=== PATIENT | male | born 1965 | race Caucasian/White ===

== ENCOUNTER 2019-03-15 11:07 | Emergency (ER) | payer SELFPAY ==
[~2019-03-15] VITALS: Ht 165.1 cm; Wt 63.5 kg
--- NOTE | 2019-03-15 11:47 | PHYS DOC ---
Past Medical History Past Medical History: COPD, Hypertension Past Surgical History: No Surgical History Alcohol Use: Heavy Drug Use: None Adult General Chief Complaint Chief Complaint: ALLERGIC REACTION HPI HPI Patient is a pleasant 53-year-old male, with a past history of COPD, as well as hypertension, who presents to the emergency department for evaluation. He states he awakened this morning, noticed the left side of his face was swelling, primarily his left upper and lower lip. He also has some mild swelling on the right side of his face. He has a prior history of angioedema, which was attributed to hydrochlorothiazide in the past, and he has been taken off that medication. However, he is on lisinopril, as well as Norvasc for his hypertension. His voice is somewhat raspy, but he denies any significant shortness of breath. He has not had any fevers or chills otherwise. There are no alleviating, or exacerbating factors to his symptoms. His symptoms have been relatively stable since he awakened this morning. Review of Systems Review of Systems Constitutional: Denies fever or chills [] Eyes: Denies change in visual acuity, redness, or eye pain [] HENT: Denies nasal congestion or sore throat [] Respiratory: Denies cough or shortness of breath [] Cardiovascular: The patient denies any shortness of breath, chest pain, palpita tions, or orthopnea [] GI: Denies abdominal pain, nausea, vomiting, bloody stools or diarrhea [] : Denies dysuria or hematuria [] Musculoskeletal: Denies back pain or joint pain [] Integument: Denies rash or skin lesions [] Neurologic: Denies headache, focal weakness or sensory changes [] Endocrine: Denies polyuria or polydipsia [] All other systems were reviewed and found to be within normal limits, except as documented in this note. Current Medications Current Medications Current Medications Medications (Trade) Dose Ordered Sig/Jimmie Start Time Stop Time Status Last Admin Dose Admin Diphenhydramine HCl (Benadryl) 25 mg 1X ONCE 03/15/19 12:00 03/15/19 12:01 DC 03/15/19 11:47 25 MG Famotidine (Pepcid Vial) 20 mg 1X ONCE 03/15/19 12:00 03/15/19 12:01 DC 03/15/19 11:46 20 MG Methylprednisolone Sodium Succinate (SOLU-Medrol 125MG VIAL) 125 mg 1X ONCE 03/15/19 12:00 03/15/19 12:01 DC 03/15/19 11:46 125 MG Allergies Allergies Allergies Coded Allergies Type Severity Reaction Last Updated Verified hydrochlorothiazide Allergy Intermediate 03/15/19 Yes lisinopril Allergy Intermediate 03/15/19 Yes morphine Allergy Intermediate 03/15/19 Yes Physical Exam Physical Exam PHYSICAL EXAM: CONSTITUTIONAL: Well developed, well nourished HEAD: normocephalic, atraumatic EENT: PERRL, EOMI. Conjunctivae normal color, sclerae non-icteric; moist mucous membranes. There is moderate edema to the left upper and lower face, including lips. There is mild edema to the right face. Airway is patent, with no edema. There is mild swelling to the tongue, L>R. THere is no stridor. NECK: Supple, non-tender; no meningismus. LUNGS: Lungs CTA, breathing even and unlabored. Normal air movement. HEART: Regular rate and rhythm, no murmur CHEST: No deformity; non-tender ABDOMEN: The abdomen is soft, and non-tender, no masses or bruits. EXTREM: Normal ROM; no deformity, no calf tenderness. Normal pulses palpable in all extremities. There is no pedal edema. SKIN: No rash; no diaphoresis NEURO: Alert; normal speech and cognition; CN's grossly intact; strength grossly intact without focal deficit. BACK: No CVA TTP. Current Patient Data Vital Signs Vital Signs Date Time Temp Pulse Resp B/P (MAP) Pulse Ox O2 Delivery O2 Flow Rate FiO2 03/15/19 11:16 98.5 84 20 118/77 (91) 99 Room Air 98.5 EKG EKG [] Radiology/Procedures Radiology/Procedures [] Course & Med Decision Making Course & Med Decision Making 1:40 PM: Pt remains stable. Swelling has decreased in his face. His airway remains stable. Discussed need for PCP f/u to adjust BP meds, discussed stopping lisinopril, and return precautions Xavier Disclaimer Xavier Disclaimer This electronic medical record was generated, in whole or in part, using a voice recognition dictation system. Departure Departure Impression: Primary Impression: Angioedema Disposition: HOME, SELF-CARE Condition: STABLE Patient Instructions: Angioedema Additional Instructions: Stop taking your lisinopril. Follow-up with your primary care provider for further adjustment of your blood pressure medication in the coming days. Please call to schedule an appointment. Take Benadryl 25-50 mg every 6 hours for the next 3 days. Use caution as this m ay cause sedation. Additionally, take Pepcid AC 10 mg twice daily for the next 3 days. This medicine is available [id number]. Use the prescribed steroids as instructed. Return to medical care for any new, or worsening symptoms, the development of shortness of breath, new rash, dizziness lightheadedness, fevers, or any other new, or concerning symptoms. Scripts Prednisone (PREDNISONE) 20 Mg Tablet 40 MG PO DAILY for 5 Days, #10 TAB Prov: JUAN ALBERTO CAPELLAN MD 03/15/19 JUAN ALBERTO CAPELLAN MD March 15, 2019 11:47
[2019-03-15] MEDS ORDERED: diphenhydrAMINE 50 MG/ML VIAL IVP ONE (12:00)
[2019-03-15] MEDS ORDERED: methylPREDNISolone SOD SUCC PF 125 MG/2 ML VIAL. IV ONE (12:00)
[2019-03-15] MEDS ORDERED: FAMOTIDINE 20 MG/2 ML VIAL IVP ONE (12:00)
[2019-03-15 13:42] VITALS: BP 128/72
[2019-03-15] MEDS ORDERED: PRED20TA PO (13:51)
== END 2019-03-15 14:04 | disposition home or self-care (01) ==
LOC: ER 11:07
DX: T78.3XXA Angioneurotic edema, initial encounter (principal); J44.9 Chronic obstructive pulmonary disease, unspecified; I10 Essential (primary) hypertension; F10.20 Alcohol dependence, uncomplicated; Y90.9 Presence of alcohol in blood, level not specified; Z88.8 Allergy status to other drugs, medicaments and biological substances; Z88.5 Allergy status to narcotic agent
CPT/HCPCS: 96374; 96375; 99284; J1200; J2930; J3490

== ENCOUNTER 2019-08-15 02:10 | Emergency (ER) | payer SELFPAY ==
[~2019-08-15] VITALS: Ht 175.3 cm; Wt 65.8 kg
[~2019-08-15 02:10] MED LIST: PRED20TA PO
[2019-08-15 02:38] LABS: BASO # 0.1 x10^3/uL (0.0-0.2); BASO % 1 % (0-3); EOS # 0.2 x10^3/uL (0.0-0.7); EOS % 4 % (0-3); HEMATOCRIT 43.4 % (39.0-53.0); HEMOGLOBIN 14.9 g/dL (13.0-17.5); LYMPH # 1.9 x10^3/uL (1.0-4.8); LYMPH % 34 % (24-48); MEAN CORPUSCULAR HEMOGLOBIN 32 pg (25-35); MEAN CORPUSCULAR HGB CONC 34 g/dL (31-37); MEAN CORPUSCULAR VOLUME 93 fL (79-100); MONO # 0.7 x10^3/uL (0.0-1.1); MONO % 11 % (0-9); NEUT # 2.9 x10^3/uL (1.8-7.7); NEUT % 50 % (31-73); PLATELET COUNT 243 x10^3/uL (140-400); RED CELL DISTRIBUTION WIDTH 14.2 % (11.5-14.5); WHITE BLOOD COUNT 5.8 x10^3/uL (4.0-11.0)
[2019-08-15] MEDS ORDERED: IV NORMAL SALINE 1000ML BAG 1,000 ML IV ONE (02:45)
[2019-08-15 02:48] LABS: CALCIUM 8.6 mg/dL (8.5-10.1); CREATININE 0.7 mg/dL (0.7-1.3); GFR 117.5; POTASSIUM 3.6 mmol/L (3.5-5.1)
[2019-08-15 02:54] LABS: ALBUMIN 3.5 g/dL (3.4-5.0); ALBUMIN/GLOBULIN RATIO 0.8 (1.0-1.7); TOTAL BILIRUBIN 0.1 mg/dL (0.2-1.0); TOTAL PROTEIN 8.1 g/dL (6.4-8.2)
--- NOTE | 2019-08-15 05:28 | PHYS DOC ---
Past Medical History Past Medical History: COPD, Hypertension Additional Past Medical Histor: ANGIOEDEMA - r/t BP meds; hx of mult episodes Past Surgical History: Other Additional Past Surgical Histo: UNKNOWN Alcohol Use: Heavy Drug Use: Marijuana Adult General Chief Complaint Chief Complaint: ALCOHOL INTOXICATION HPI HPI Patient is a 54 year old who presents to the ED with a chief complaint of alcohol intoxication and possible overdose of his blood pressure medication. Patient is not sure how much medication he took. Patient states that he drank quite heavily tonight. Patient denies injury. Review of Systems Review of Systems Constitutional: Denies fever or chills [] HENT: Denies nasal congestion or sore throat [] Respiratory: Denies cough or shortness of breath [] Cardiovascular: Patient denies chest pain[] GI: Denies abdominal pain, nausea, vomiting, bloody stools or diarrhea [] : Denies dysuria or hematuria [] Neurologic: Denies headache [] All other systems were reviewed and found to be within normal limits, except as documented in this note. Current Medications Current Medications Current Medications Medications (Trade) Dose Ordered Sig/Jimmie Start Time Stop Time Status Last Admin Dose Admin Sodium Chloride 1,000 ml @ 1,000 mls/hr 1X ONCE 08/15/19 02:45 08/15/19 03:44 DC 08/15/19 02:36 1,000 MLS/HR Allergies Allergies Allergies Coded Allergies Type Severity Reaction Last Updated Verified hydrochlorothiazide Allergy Intermediate 03/15/19 Yes lisinopril Allergy Intermediate 03/15/19 Yes morphine Allergy Intermediate 03/15/19 Yes Physical Exam Physical Exam Constitutional: Well developed, well nourished, no acute distress, non-toxic appearance. [] HENT: Normocephalic, atraumatic[] Neck: Normal range of motion, no tenderness [] Cardiovascular:Heart rate regular rhythm, no murmur [] Lungs & Thorax: Ronchi B/L [] Abdomen: Bowel sounds normal, soft, no tenderness [] Skin: Warm, dry, no erythema, no rash. [] Back: No tenderness, no CVA tenderness. [] Extremities: No tenderness, no cyanosis, no clubbing, ROM intact. [] Neurologic: Alert and oriented X 3 [] Current Patient Data Vital Signs Vital Signs Date Time Temp Pulse Resp B/P (MAP) Pulse Ox O2 Delivery O2 Flow Rate FiO2 08/15/19 04:00 86 15 103/67 (79) 96 Nasal Cannula 2.0 08/15/19 02:10 97.5 97.5 Lab Values Laboratory Tests Test 08/15/19 02:25 08/15/19 02:32 White Blood Count 5.8 x10^3/uL (4.0-11.0) Red Blood Count 4.70 x10^6/uL (4.30-5.70) Hemoglobin 14.9 g/dL (13.0-17.5) Hematocrit 43.4 % (39.0-53.0) Mean Corpuscular Volume 93 fL (79-100) Mean Corpuscular Hemoglobin 32 pg (25-35) Mean Corpuscular Hemoglobin Concent 34 g/dL (31-37) Red Cell Distribution Width 14.2 % (11.5-14.5) Platelet Count 243 x10^3/uL (140-400) Neutrophils (%) (Auto) 50 % (31-73) Lymphocytes (%) (Auto) 34 % (24-48) Monocytes (%) (Auto) 11 % (0-9) H Eosinophils (%) (Auto) 4 % (0-3) H Basophils (%) (Auto) 1 % (0-3) Neutrophils # (Auto) 2.9 x10^3/uL (1.8-7.7) Lymphocytes # (Auto) 1.9 x10^3/uL (1.0-4.8) Monocytes # (Auto) 0.7 x10^3/uL (0.0-1.1) Eosinophils # (Auto) 0.2 x10^3/uL (0.0-0.7) Basophils # (Auto) 0.1 x10^3/uL (0.0-0.2) Sodium Level 145 mmol/L (136-145) Potassium Level 3.6 mmol/L (3.5-5.1) Chloride Level 109 mmol/L (98-107) H Carbon Dioxide Level 24 mmol/L (21-32) Anion Gap 12 (6-14) Blood Urea Nitrogen 20 mg/dL (8-26) Creatinine 0.7 mg/dL (0.7-1.3) Estimated GFR (Cockcroft-Gault) 117.5 BUN/Creatinine Ratio 29 (6-20) H Glucose Level 88 mg/dL (70-99) Calcium Level 8.6 mg/dL (8.5-10.1) Total Bilirubin 0.1 mg/dL (0.2-1.0) L Aspartate Amino Transferase (AST) 22 U/L (15-37) Alanine Aminotransferase (ALT) 19 U/L (16-63) Alkaline Phosphatase 86 U/L (46-116) Total Protein 8.1 g/dL (6.4-8.2) Albumin 3.5 g/dL (3.4-5.0) Albumin/Globulin Ratio 0.8 (1.0-1.7) L Ethyl Alcohol Level 288 mg/dL (0-10) H Glucose (Fingerstick) 96 mg/dL (70-99) Laboratory Tests 08/15/19 02:25 Laboratory Tests 08/15/19 02:25 EKG EKG [] Radiology/Procedures Radiology/Procedures [] Course & Med Decision Making Course & Med Decision Making Pertinent Labs reviewed. (See chart for details) Patient's blood pressure is stable. Alcohol level is 288. Placed patient on 2 L nasal cannula. Patient is sleeping in the ED. Arousable easily and answers questions appropriately. We will discharge home and patient is sober. Discussed results and plan of care with patient. Patient is instructed to follow up with PCP in one to 2 days. Appropriate discharge instructions given to patient to return to the ED or to seek immediate medical evaluation. Patient is instructed to return to the ED if symptoms worsen or if any concerns. Dragon Disclaimer Dragon Disclaimer This electronic medical record was generated, in whole or in part, using a voice recognition dictation system. Departure Departure Impression: Primary Impression: Alcohol intoxication Disposition: 01 HOME, SELF-CARE Condition: STABLE Referrals: [facility] (PCP) Patient Instructions: Alcohol Intoxication Additional Instructions: Discussed results and plan of care with patient. Patient is instructed to follow up with PCP in one to 2 days. Appropriate discharge instructions given to patient to return to the ED or to seek immediate medical evaluation. Patient is instructed to return to the ED if symptoms worsen or if any concerns. JUANITA YANEZ DO Aug 15, 2019 05:28
[2019-08-15 08:18] VITALS: BP 119/68
== END 2019-08-15 08:21 | disposition home or self-care (01) ==
LOC: ER 02:10
DX: F10.229 Alcohol dependence with intoxication, unspecified (principal); I10 Essential (primary) hypertension; J44.9 Chronic obstructive pulmonary disease, unspecified; Z88.5 Allergy status to narcotic agent; Z88.8 Allergy status to other drugs, medicaments and biological substances
CPT/HCPCS: 36415; 80053; 82962; 85025; 99284; G0480; J7030

== ENCOUNTER → 2021-03-13 | Outpatient (CLI) | payer OTHER ==
--- NOTE | 2021-03-13 15:24 | RAD ---
3 views the bilateral hands without comparison for rheumatoid disease. FINDINGS: 3 views of each hand are provided. There is no fracture, dislocation, or acute osseous abno rmality identified in either hand. There are moderate to severe bilaterally symmetrical arthritic kelly nges involving the first and third metatarsophalangeal joints, and the fifth proximal phalangeal join ts. More mild arthritic changes are seen involving the remainder the interphalangeal joints, as well as the first carpometacarpal joints. There is soft tissue swelling about the interphalangeal joints. No juxta articular osteopenia. No erosions. No pathologic calcifications. IMPRESSION: 1. Bilaterally symmetrical polyarticular arthritis with no radiographically evident inflammatory [place] ents. Electronically signed by: Diogo Ronquillo MD (03/13/2021 3:21 PM) [id number]
== END ==
LOC: RAD 10:02
PROVIDERS: ATTEND Family Medicine
DX: M19.042 Primary osteoarthritis, left hand (principal); M19.041 Primary osteoarthritis, right hand
CPT/HCPCS: 73130-50